=== PATIENT | male | born 1955 | race African-American/Black ===

== ENCOUNTER 2019-05-09 06:07 | Emergency (ER) | payer OTHER ==
[2018-05-24 00:15] VITALS: BP 108/60
[~2019-05-09 06:07] MED LIST: ASPI-630 PO; ATORVASTATIN CA80 MG PO; CARV25TA2 PO; ERGO500027 PO; FURO40TA4 PO; GLIP5TAB10 PO; LISI-130 PO; MELA3TAB2 PO; METF10007 PO; RIVA10TA PO; SILD50TA PO
[2019-05-09 08:52] LABS: CALCIUM 8.2 mg/dL (8.5-10.1); CREATININE 1.1 mg/dL (0.7-1.3); GFR 81.8; POTASSIUM 3.5 mmol/L (3.5-5.1)
--- NOTE | 2019-05-09 08:53 | PHYS DOC ---
Past Medical History Past Medical History: CAD, Diabetes-Type II, DVT, High Cholesterol, Hypertension, Kidney Stone Additional Past Medical Histor: cardiomyopathy Past Surgical History: Other Additional Past Surgical Histo: IVC Filter, skin graft to R hand Alcohol Use: Occasionally Drug Use: Phencyclidine Adult General Chief Complaint Chief Complaint: ALTERED MENTAL STATUS [facility] HPI Patient is a 63 year old [place] male who presents with altered mental status. Patient reportedly drove the parking lot of local gas station is acting erratically when the attendant called EMS. On EMS arrival, the patient was alert but disoriented to person place and time. Patient is noted to have dilated pupils. An sugar was 255. Patient transferred to ED for evaluation. On ED arrival, the patient is alert and oriented to person, but is confused as to location, events and timeline. Denies headache, change of vision palpitations, chest pain. He is able to move all extremities. History is limited based upon the patient's clinical condition. Patient tobacco alcohol status is unknown. Patient is believed have been found with paraphernalia in his automobile. [] Review of Systems Review of Systems ROS as per HPI All other systems were reviewed and found to be within normal limits, except as documented in this note. Current Medications Current Medications Current Medications Medications (Trade) Dose Ordered Sig/Jim Start Time Stop Time Status Last Admin Dose Admin Sodium Chloride 1,000 ml @ 1,000 mls/hr 1X ONCE 05/09/19 10:45 05/09/19 11:44 DC 05/09/19 12:14 1,000 MLS/HR Allergies Allergies Allergies Coded Allergies Type Severity Reaction Last Updated Verified I S O L A T I O N *CONTACT* Allergy Unknown 05/24/18 Yes No Known Medication Allergies Allergy Unknown 05/24/18 Yes Physical Exam Physical Exam Constitutional: Well developed, well nourished, agitated.[] HENT: Normocephalic, atraumatic, bilateral external ears normal, oropharynx moist, nose normal. [] Eyes: PERRLA, pupils dilated.. [] Neck: Normal range of motion, no tenderness, supple, no stridor. [] Cardiovascular:Heart rate regular rhythm, no murmur [] Lungs & Thorax: Bilateral breath sounds clear to auscultation [] Abdomen: Bowel sounds normal, soft, no tenderness. [] Skin: Warm, dry, appropriate for ethnicity. [] Back: No tenderness. [] Extremities: No tenderness. [] Neurologic: Alert and oriented X 1, cranial nerves, 2 through 12, grossly intact, normal motor function, normal sensory function, no focal deficits noted. [] Psychologic: Affect normal, judgement normal, mood normal. [] Current Patient Data Lab Values Laboratory Tests Test 05/09/19 06:22 05/09/19 08:44 White Blood Count 5.3 x10^3/uL (4.0-11.0) Red Blood Count 4.90 x10^6/uL (4.30-5.70) Hemoglobin 10.6 g/dL (13.0-17.5) L Hematocrit 34.4 % (39.0-53.0) L Mean Corpuscular Volume 70 fL (79-100) L Mean Corpuscular Hemoglobin 22 pg (25-35) L Mean Corpuscular Hemoglobin Concent 31 g/dL (31-37) Red Cell Distribution Width 19.8 % (11.5-14.5) H Platelet Count 184 x10^3/uL (140-400) Neutrophils (%) (Auto) 56 % (31-73) Lymphocytes (%) (Auto) 30 % (24-48) Monocytes (%) (Auto) 11 % (0-9) H Eosinophils (%) (Auto) 2 % (0-3) Basophils (%) (Auto) 1 % (0-3) Neutrophils # (Auto) 3.0 x10^3/uL (1.8-7.7) Lymphocytes # (Auto) 1.6 x10^3/uL (1.0-4.8) Monocytes # (Auto) 0.6 x10^3/uL (0.0-1.1) Eosinophils # (Auto) 0.1 x10^3/uL (0.0-0.7) Basophils # (Auto) 0.0 x10^3/uL (0.0-0.2) Platelet Estimate Adequate (ADEQUATE) Hypochromasia Present Anisocytosis Slight Sodium Level 140 mmol/L (136-145) Potassium Level 3.5 mmol/L (3.5-5.1) Chloride Level 101 mmol/L (98-107) Carbon Dioxide Level 31 mmol/L (21-32) Anion Gap 8 (6-14) Blood Urea Nitrogen 6 mg/dL (8-26) L Creatinine 1.1 mg/dL (0.7-1.3) Estimated GFR (Cockcroft-Gault) 81.8 Glucose Level 164 mg/dL (70-99) H Glucose (Fingerstick) 155 mg/dL (70-99) H Calcium Level 8.2 mg/dL (8.5-10.1) L Troponin I Quantitative 0.017 ng/mL (0.000-0.055) Prothrombin Time 13.1 SEC (11.7-14.0) Prothrombin Time INR 1.0 (0.8-1.1) Activated Partial Thromboplast Time 33 SEC (24-38) Laboratory Tests 05/09/19 06:22 Laboratory Tests 05/09/19 06:22 EKG EKG EKG: reviewed[] Radiology/Procedures Radiology/Procedures [CT head: reviewed CXR: reviewed] Course & Med Decision Making Course & Med Decision Making Pertinent Labs and Imaging studies reviewed. (See chart for details) [Patient given Haldol for agitation and facilitation of ED evaluation and testing. CT, chest x-ray, initial labs reviewed. No acute findings, UA/drug screen.] Dragon Disclaimer Dragon Disclaimer This electronic medical record was generated, in whole or in part, using a voice recognition dictation system. Departure Departure Impression: Primary Impression: Altered mental status Disposition: 01 HOME, SELF-CARE Condition: IMPROVED Referrals: UNKNOWN PCP NAME (PCP) Additional Instructions: You were evaluated in the emergency department for change in mental status. Lab and imaging studies were performed exact cause of your symptoms has not been known. Takes medications and is prescribed in avoid all harmful substances. Follow-up with your PCP in 1-2 days for reevaluation. Return to the ED if new or worsening symptoms. WILMER SMITH DO May 09, 2019 08:53
[2019-05-09 08:54] LABS: BASO % 1 % (0-3); EOS # 0.1 x10^3/uL (0.0-0.7); EOS % 2 % (0-3); HEMATOCRIT 34.4 % (39.0-53.0); HEMOGLOBIN 10.6 g/dL (13.0-17.5); LYMPH # 1.6 x10^3/uL (1.0-4.8); LYMPH % 30 % (24-48); MEAN CORPUSCULAR HEMOGLOBIN 22 pg (25-35); MEAN CORPUSCULAR HGB CONC 31 g/dL (31-37); MEAN CORPUSCULAR VOLUME 70 fL (79-100); MONO # 0.6 x10^3/uL (0.0-1.1); MONO % 11 % (0-9); NEUT % 56 % (31-73); PLATELET COUNT 184 x10^3/uL (140-400); RED CELL DISTRIBUTION WIDTH 19.8 % (11.5-14.5); WHITE BLOOD COUNT 5.3 x10^3/uL (4.0-11.0)
--- NOTE | 2019-05-09 08:54 | RAD ---
CT HEAD WO CONTRAST History: Altered mental status. Comparison: None. Technique: Noncontrast CT imaging was performed of the head. Exposure: One or more of the following individualized dose reduction techniques were utilized for this examination: 1. Automated exposure control 2. Adjustment of the mA and/or kV according to patient size 3. Use of iterative reconstruction technique. Findings: No intracranial hemorrhage. No mass effect. No hydrocephalus. Extra-axial spaces are unremarkable. Imaged orbits are unremarkable. Mild scattered paranasal sinus mucosal thickening. No fluid levels. Mastoid air cells are clear. No acute calvarial fracture. Impression: 1. No acute intracranial abnormality. Electronically signed by: Calin Zavala DO (05/09/2019 8:51 AM) [id number]
--- NOTE | 2019-05-09 09:13 | RAD ---
CHEST AP ONLY Clinical Indication: Altered mental status Comparison: 05/23/2018 portable chest x-ray exam. Findings: Portable upright frontal view of the chest was obtained. The cardiomediastinal silhouette is normal. Lungs are clear. There is no pneumothorax. Borderline pulmonary vasculature congestion. No definite effusion. No acute bone abnormality. IMPRESSION: No acute cardiopulmonary process. Electronically signed by: Ignacio Lang MD (05/09/2019 9:10 AM) [facility]
[2019-05-09 09:28] LABS: PROTHROMBIN TIME PATIENT 13.1 SEC (11.7-14.0)
[2019-05-09 10:04] LABS: ANISOCYTOSIS SLIGHT; HYPOCHROMIA PRESENT; PLT ESTIMATE ADEQUATE (ADEQUATE)
[2019-05-09] MEDS ORDERED: IV NORMAL SALINE 1000ML BAG 1,000 ML IV ONE (10:45)
[2019-05-09 14:03] LABS: BILIRUBIN,URINE NEGATIVE (NEG); CLARITY,URINE CLEAR; COLOR,URINE YELLOW; NITRITE,URINE NEGATIVE (NEG); PROTEIN,URINE >=300 mg/dL (NEG-TRACE)
[2019-05-09 14:07] LABS: BARBITURATES NEG (NEG); BENZODIAZEPINES NEG (NEG); CANNABINOIDS NEG (NEG); COCAINE NEG (NEG); METHADONE NEG (NEG); OPIATES NEG (NEG); PHENCYCLIDINE POS (NEG)
[2019-05-09 14:08] LABS: AMPHETAMINE/METHAMPHETAMINE NEG (NEG)
[2019-05-09 14:14] LABS: BACTERIA,URINE 0 /HPF (0-FEW); HYALINE CASTS, URINE MODERATE /HPF; SQUAMOUS EPITHELIAL CELL,UR FEW /LPF; WBC,URINE OCC /HPF (0-4)
== END 2019-05-09 14:14 | disposition home or self-care (01) ==
LOC: ER 06:07
DX: R41.82 Altered mental status, unspecified (principal); I25.10 Atherosclerotic heart disease of native coronary artery without angina pectoris; E11.9 Type 2 diabetes mellitus without complications; E78.00 Pure hypercholesterolemia, unspecified; I11.9 Hypertensive heart disease without heart failure; I43 Cardiomyopathy in diseases classified elsewhere; Z87.442 Personal history of urinary calculi; Z86.718 Personal history of other venous thrombosis and embolism; Z91.041 Radiographic dye allergy status
CPT/HCPCS: 36415; 70450; 71045; 80048; 80307; 81001; 82962; 84484; 85025; 85610; 85730; 96360; 99285; J7030